=== PATIENT | female | born 1945 | race Caucasian/White ===

== ENCOUNTER 2018-02-24 11:05 | Observation (INO) ==
--- NOTE | 2018-02-24 11:16 | Emergency Department Note ---
Disposition Clinical Impression: Chest pain, DJD (degenerative joint disease), lumbar, HLD (hyperlipidemia), Pityriasis rosea Disposition: Admitted As Inpatient Condition: Fair Referrals: NONE,PCP [Non-Partnered Physician] - Forms: ED Satisfaction Letter Time of Disposition: 12:50 Chest Pain HPI - General Chief Complaint: ED Chest Pain Stated Complaint: chest burning Time Seen by Provider: 02/24/18 11:09 Source: patient Mode of arrival: ambulatory Limitations: no limitations Vital Signs Reviewed: Yes Nursing Notes Reviewed: Yes - History of Present Illness HPI Narrative: 72-year-old female who presents versus hadn't having intermittent chest pain no nausea no vomiting no diaphoresis no radiation of the neck and jaw have strong family history of cardiac disease. Patient states though she also has a rash which is present over started initially on the breast and now spread over the trunk and back and third she has flank pain is along the spine it's worse with twisting turning moving she denies any blood in her stool she denies any abdominal pain or discomfort she denies vaginal discharge denies any difficulty with urinating and stooling she's concern today was because she's had midsternal chest pain worsened with activity was present when she got up but is gone now she denies any. Makes it better nothing makes where she did take an aspirin prior to arrival systems reviewed and are negative Pt complaint: chest pain Onset (ago): Just [employer] Duration: intermittent Onset: during rest, during exertion Pain Location: substernal Severity: moderate Severity scale (1-10): 5 Quality: aching Pain Radiation: none Improves with: nothing Worsens with: exertion Associated symptoms: Reports: other (Back pain). Denies: nausea, vomiting, diaphoresis, dyspnea, sense of impending doom, syncope, palpitations, fever, cough, leg swelling Treatments prior to arrival chest pain: aspirin, other (Home meds) - Related Data Home Medications Medication Instructions Recorded Confirmed Albuterol Sulfate [Albuterol 2 puff IH Q4H PRN 04/12/16 02/24/18 Inhaler] Aspirin [Lo-Dose Aspirin EC] 81 mg PO DAILY 04/12/16 02/24/18 Atorvastatin Calcium [Lipitor] 40 mg PO DAILY 04/12/16 02/24/18 Omeprazole 40 mg PO DAILY 04/12/16 02/24/18 Potassium Chloride [Klor-Con 10 meq PO DAILY 04/12/16 02/24/18 Sprinkle] Sertraline [Zoloft] 150 mg PO DAILY 04/12/16 02/24/18 Ergocalciferol (VITAMIN D2) 50,000 unit PO QWEEK 06/25/16 02/24/18 [Vitamin D2] Allergies Allergy/AdvReac Type Severity Reaction Status Date / Time Iodinated Contrast- Oral and Allergy Hives Verified 06/26/16 15:31 IV Dye [Iodinated Contrast Media - Oral and] DERRICK Inhibitors AdvReac Cough Verified 06/26/16 15:31 All systems ED: reviewed and negative except as stated. Review of Systems: As Per HPI Constitutional: Reports: weakness. Denies: fever, chills Eyes: Denies: eye pain, eye discharge ENT ED: Denies: ear pain, throat pain Cardiovascular: Reports: chest pain, palpitations, dyspnea on exertion Respiratory: Denies: cough, dyspnea, wheezes Gastrointestinal: Denies: abdominal pain, nausea, vomiting Genitourinary: Denies: urgency, dysuria, frequency Musculoskeletal: Denies: back pain, neck pain Integumentary: Reports: rash. Denies: abrasion Neurological: Reports: weakness. Denies: headache, numbness Psychiatric: Denies: anxiety, depression Endocrine: Denies: fatigue Hematological/Lymphatic: Denies: easy bleeding Allergic/Immunologic: Denies: facial swelling Chest Pain PMH - Past Medical History Medical history: Reports: GERD, hyperlipidemia, hypertension Surgical history: Reports: cholecystectomy, hysterectomy Psychiatric history: Reports: anxiety - Social History Smoking Status: Former smoker Alcohol use: Reports: none Drug use: Reports: none Physical Exam - General Limitations: no limitations General appearance: alert, in no apparent distress - Head Head exam: atraumatic, normocephalic, normal inspection - Eye Eye exam: Present: normal appearance, PERRL, EOMI - ENT ENT exam: normal exam, normal oropharynx, mucous membranes moist, TM's normal bilaterally, normal external ear exam - Neck Neck exam: Present: normal inspection, full ROM, trachea midline - Chest Chest inspection: Present: normal inspection, symmetric chest wall rise, other (Lesion on the right breast consistent with Isaak lesion she has multiple spots all over her chest and back follows along the folds in the back it is consistent with little bit salmon colored rash which blanches with palpation) - Respiratory Respiratory exam: Present: normal lung sounds bilaterally - Cardiovascular Cardiovascular exam: Present: regular rate, normal rhythm, normal heart sounds - Abdominal Exam Abdominal exam: Present: soft, Non-Tender, normal bowel sounds. Absent: mass, pulsatile mass - Expanded Upper Extremity Exam Shoulder exam: Present: normal inspection, full ROM Arm exam: Present: normal inspection, full ROM Elbow exam: Present: normal inspection, full ROM Forearm/Wrist exam: Present: normal inspection, full ROM Hand exam: Present: normal inspection, full ROM Vascular exam: Normal: capillary refill, radial pulse - Expanded Lower Extremity Exam Hip/Pelvis exam: Present: normal inspection, full ROM Upper leg exam: Present: normal inspection, full ROM Knee exam: Present: normal inspection, full ROM Lower leg exam: Present: normal inspection, full ROM Ankle exam: Present: normal inspection, full ROM Foot/toe exam: Present: normal inspection, full ROM Neurovascular/Tendon exam: Present: normal capillary refill, normal fine/light touch. Absent: motor deficit, sensory deficit, tendon deficit Gait: observed and normal - Back Exam Back exam: Present: normal inspection, full ROM. Absent: muscle spasm - Neurological Exam Neurological exam: Present: alert, oriented X3, CN II-XII intact, normal gait - Psychiatric Psychiatric exam: Present: normal affect, normal mood - Skin Skin exam: Present: warm, dry, intact, normal color Course Course Narrative: Patient seen and examined patient is currently pain-free at this time she has been monitored in the emergency room monitor for 23 hours and repeat her troponin MedSurg Dr. Sinclair patient's back pain appears to be more musculoskeletal in etiology most likely degenerative changes noted with the weather changing of the rash that is present on her chest she has a here lesion on the right breast that is consistent with that that she's got the rash which is been present for couple weeks as result self-limiting Vital Signs Temperature 98.1 F 02/24/18 11:09 Pulse Rate 68 02/24/18 11:09 Respiratory Rate 18 02/24/18 11:09 Blood Pressure 146/67 02/24/18 11:09 O2 Sat by Pulse Oximetry 98 02/24/18 11:09 Temperature 98.1 F 02/24/18 11:09 Pulse Rate 66 02/24/18 12:41 Respiratory Rate 18 02/24/18 12:41 Blood Pressure 155/82 02/24/18 12:41 O2 Sat by Pulse Oximetry 99 02/24/18 12:41 Oxygen Delivery Oxygen Delivery Room Air Chest Pain - Differential Diagnosis Likely: unstable angina pectoris, atypical chest pain, chest pain - Medical Records Medical records reviewed: Yes I reviewed the patient's medical records. - Lab Data Lab results reviewed: Yes I reviewed the patient's lab results. Result diagrams: 02/24/18 11:51 02/24/18 11:51 Lab Results 02/24/18 02/24/18 02/24/18 Range/Units 11:51 11:51 11:51 WBC 6.6 (4.3-11.1) K/mcL RBC 4.38 (3.82-4.97) M/mcL Hgb 11.5 (11.5-15.4) g/dL Hct 35.9 (35.3-44.9) % MCV 82.0 L (83.0-100.0) fL MCH 26.3 L (28.0-33.3) pg MCHC 32.0 (31.6-35.5) g/dL RDW 13.0 (11.5-14.5) % Plt Count 62 L (140-400) K/mcL MPV 13.4 H (9.4-12.4) fL Immature Gran % 0.3 (0-4) % Seg Neutrophils % 75.4 % Lymphocytes % 13.7 % Monocytes % 9.3 % Eosinophils % 1.1 % Basophils % 0.2 % Neutrophils # 5.0 (1.6-8.9) K/mcL Lymphocytes # 0.9 (0.6-4.6) K/mcL Monocytes # 0.6 (0.0-1.3) K/mcL Eosinophils # 0.1 (0.0-0.6) K/mcL Basophils # 0.0 (0.0-0.2) K/mcL PT 13.6 H (9.4-12.1) Seconds INR 1.2 APTT 33.8 (26.0-36.0) Seconds Sodium 136 (136-145) mEq/L Potassium 3.6 (3.5-5.1) mEq/L Chloride 103 (98-107) mEq/L Carbon Dioxide 24 (23-29) mEq/L BUN 14 (8-23) mg/dL Creatinine 0.66 (0.60-1.20) mg/dL Est GFR ( Amer) > 60 (> 60) Est GFR (Non-Af Amer) > 60 (> 60) BUN/Creatinine Ratio 21 (6-26) Glucose 113 H (70-105) mg/dL Calculated Osmolality 283 (280-300) Lactic Acid (0.5-2.2) mmol/L Calcium 9.1 (8.6-10.3) mg/dL Magnesium 2.1 (1.6-2.6) mg/dL Total Bilirubin 0.6 (0.3-1.0) mg/dL AST 15 (13-39) Units/L ALT 15 (7-52) Units/L Alkaline Phosphatase 112 H (34-104) Units/L Troponin I < 0.03 (< 0.04) ng/mL B-Natriuretic Peptide (Less than 100) pg/mL Serum Total Protein 6.9 (6.4-8.9) g/dL Albumin 3.6 (3.5-5.7) g/dL Globulin 3.3 (2.4-3.5) g/dL Albumin/Globulin Ratio 1.1 (1.1-2.2) TSH 1.371 (0.340-5.600) mcIU/mL 02/24/18 02/24/18 Range/Units 11:51 11:51 WBC (4.3-11.1) K/mcL RBC (3.82-4.97) M/mcL Hgb (11.5-15.4) g/dL Hct (35.3-44.9) % MCV (83.0-100.0) fL MCH (28.0-33.3) pg MCHC (31.6-35.5) g/dL RDW (11.5-14.5) % Plt Count (140-400) K/mcL MPV (9.4-12.4) fL Immature Gran % (0-4) % Seg Neutrophils % % Lymphocytes % % Monocytes % % Eosinophils % % Basophils % % Neutrophils # (1.6-8.9) K/mcL Lymphocytes # (0.6-4.6) K/mcL Monocytes # (0.0-1.3) K/mcL Eosinophils # (0.0-0.6) K/mcL Basophils # (0.0-0.2) K/mcL PT (9.4-12.1) Seconds INR APTT (26.0-36.0) Seconds Sodium (136-145) mEq/L Potassium (3.5-5.1) mEq/L Chloride (98-107) mEq/L Carbon Dioxide (23-29) mEq/L BUN (8-23) mg/dL Creatinine (0.60-1.20) mg/dL Est GFR ( Amer) (> 60) Est GFR (Non-Af Amer) (> 60) BUN/Creatinine Ratio (6-26) Glucose (70-105) mg/dL Calculated Osmolality (280-300) Lactic Acid 0.9 (0.5-2.2) mmol/L Calcium (8.6-10.3) mg/dL Magnesium (1.6-2.6) mg/dL Total Bilirubin (0.3-1.0) mg/dL AST (13-39) Units/L ALT (7-52) Units/L Alkaline Phosphatase (34-104) Units/L Troponin I (< 0.04) ng/mL B-Natriuretic Peptide 71 (Less than 100) pg/mL Serum Total Protein (6.4-8.9) g/dL Albumin (3.5-5.7) g/dL Globulin (2.4-3.5) g/dL Albumin/Globulin Ratio (1.1-2.2) TSH (0.340-5.600) mcIU/mL - Radiology Data Radiology results reviewed: Yes I reviewed the patient's radiology results. ITS Impressions Chest X-Ray 02/24/18 11:24 IMPRESSION: Negative portable study. D/ / Trish Vergara Cha, MD / Trish Vergara Cha, MD Interpreting Provider: Trish Vergara Cha, MD Lumbar Spine X-Ray 02/24/18 11:26 IMPRESSION: Mild multilevel degenerative change. D/ / Jf Sanabria MD / Jf Sanabria MD Interpreting Provider: Jf Sanabria MD - EKG Data EKG attestation: Yes I reviewed and interpreted this EKG. EKG results narrative: EKG shows sinus rhythm flattening of the T waves but no acute ST segment elevation rate 71. 167 QRS 76 QT 387 axis 95 Heart Score - Score History: Slightly Suspicious EKG: Non Specific repolarisation Disturbance Age: Greater than 65 Risk Factors: Equal/Greater than 3 risk factor or history of atherosclerotic disease Troponin: Less than normal limit HEART Score Total: 5 Critical Care Time Critical Care Time: No
[2018-02-24 12:01] LABS: Basophils % 0.2 %; Eosinophils # 0.1 K/mcL (0.0-0.6); Eosinophils % 1.1 %; Hematocrit 35.9 % (35.3-44.9); Hemoglobin 11.5 g/dL (11.5-15.4); Immature Granulocytes % 0.3 % (0-4); Lymphocytes # 0.9 K/mcL (0.6-4.6); Lymphocytes % 13.7 %; Mean Corpuscular Hemoglobin 26.3 pg (28.0-33.3); Mean Platelet Volume 13.4 fL (9.4-12.4); Monocytes # 0.6 K/mcL (0.0-1.3); Monocytes % 9.3 %; Red Blood Count 4.38 M/mcL (3.82-4.97); Segmented Neutrophils % 75.4 %
[2018-02-24 12:02] LABS: Platelet Count 62 K/mcL (140-400)
[2018-02-24 12:07] LABS: INR 1.2; Prothrombin Time 13.6 Seconds (9.4-12.1)
[2018-02-24 12:09] LABS: Activated Partial Thrombo Time 33.8 Seconds (26.0-36.0)
[2018-02-24 12:18] LABS: Alanine Aminotransferase 15 Units/L (7-52); Albumin 3.6 g/dL (3.5-5.7); Albumin/Globulin Ratio 1.1 (1.1-2.2); Alkaline Phosphatase 112 Units/L (34-104); Aspartate Amino Transferase 15 Units/L (13-39); BUN/Creatinine Ratio 21 (6-26); Bilirubin,Total 0.6 mg/dL (0.3-1.0); Blood Urea Nitrogen 14 mg/dL (8-23); Calcium 9.1 mg/dL (8.6-10.3); Carbon Dioxide 24 mEq/L (23-29); Chloride 103 mEq/L (98-107); Globulin 3.3 g/dL (2.4-3.5); Glucose 113 mg/dL (70-105); Magnesium 2.1 mg/dL (1.6-2.6); Osmolality,Calculated 283 (280-300); Potassium 3.6 mEq/L (3.5-5.1); Sodium 136 mEq/L (136-145); Total Protein 6.9 g/dL (6.4-8.9); Troponin I < 0.03 ng/mL (< 0.04); eGFR For Non-African Americans > 60 (> 60)
[2018-02-24 12:32] LABS: Thyroid Stimulating Hormone 1.371 mcIU/mL (0.340-5.600)
[2018-02-24 14:24] LABS: Platelet Clumps Few (Not Present); Platelet Estimate Normal (Normal)
[2018-02-24] MEDS ORDERED: Naloxone 0.4 MG/ML INJ IVP PRN (15:25)
--- NOTE | 2018-02-24 18:28 | Internal Med History&Physical ---
Date of Encounter: 02/24/18 Time of Encounter: 17:55 Assessment and Plan (1) Chest pain Current visit: Yes Status: Acute Doubt myocardial ischemia from history and physical. Serial cardiac enzymes have been ordered. Qualifiers: Chest pain type: precordial pain Qualified Code(s): R07.2 - Precordial pain (2) Microcytosis Current visit: Yes Status: Acute Iron profile will be ordered in a.m. (3) Thrombocytopenia Current visit: Yes Status: Acute Decreased from 116 K on 06/25/2016. Recheck in a.m. (4) Hypertension Current visit: No Status: Chronic Continue Cozaar. Qualifiers: Hypertension type: essential hypertension Qualified Code(s): I10 - Essential (primary) hypertension Internal Medicine - H&P: HPI Chief complaint: Chest pain Admitted From: Emergency Dept Plans for Post Hospital Care: Home History of present illness: Ms. Guthrie is a 72 year old female who came to emergency room stating she had chest pain onset 1 week ago. She describes it as an ache in her mid chest area without radiation. Episodes were unrelated to exercise and lasted approximately 10 minutes and resolved spontaneously. The discomfort occurred approximately 4 times daily. The intensity of the pain worsened last evening and she developed occasional vertigo periodically. Her daughter insisted she come to emergency room. She was evaluated and admitted to [facility] floor for ongoing care needs. She states she is pain-free at present time. She denies previous similar episodes of pain. She denies angina or anginal equivalents on exertion. She has hypertension but denies NE heart failure DVT or pulmonary embolus. She denies stress test or heart cath. Past Med Surg Social Fam HX - Past Medical History Medical history: GERD, hyperlipidemia, hypertension Additional medical history: PVD Psychiatric history: anxiety - Past Surgical History Surgical History: cholecystectomy, hysterectomy - Social History Smoking Status: Former smoker Smokeless Tobacco Status: No Alcohol use: none Drug use: none - Family History Mother Living Status: Hx Family Cardiac Disorders: Yes (NE) Father Living Status: Hx Family Cardiac Disorders: Yes (NE) Internal Medicine - H&P: Meds Albuterol Sulfate [Albuterol Inhaler] 2 puff IH Q4H PRN 04/12/16 [History] Aspirin [Lo-Dose Aspirin EC] 81 mg PO DAILY 04/12/16 [History] Atorvastatin Calcium [Lipitor] 80 mg PO DAILY 04/12/16 [History] Omeprazole 40 mg PO DAILY 04/12/16 [History] Potassium Chloride [Klor-Con Sprinkle] 10 meq PO DAILY 04/12/16 [History] Sertraline [Zoloft] 150 mg PO DAILY 04/12/16 [History] Ergocalciferol (VITAMIN D2) [Vitamin D2] 50,000 unit PO QWEEK 06/25/16 [History] Losartan [Cozaar] 50 mg PO QAM 02/24/18 [History] Allergy/AdvReac Type Severity Reaction Status Date / Time Iodinated Contrast- Oral and Allergy Hives Verified 06/26/16 15:31 IV Dye [Iodinated Contrast Media - Oral and] DERRICK Inhibitors AdvReac Cough Verified 06/26/16 15:31 All Systems PM: A 10-system review of systems was performed and is negative for pertinent findings except as documented above in the HPI. Review of systems: Gen.: She states her weight has been stable the past few months Cardiovascular: As per history of present illness Respiratory: She smoked from approximately age [age] up to 2 cigarettes per day. She denies chronic lung disease and does not use home oxygen. GI: She has had cholecystectomy. She denies disorders of her liver or exocrine pancreas : She denies hematuria dysuria or kidney stones Neurologic: She denies large distribution strokes or seizures. Endocrine: She has hyperlipidemia but denies diabetes or thyroid disease Hematology/oncology: She denies blood disorders cancers or anemia Psychiatric: She denies anxiety depression or other mental health issues. [place] skeletal: She has arthritis and chronic back pain. She denies gout or other bone joint or muscle disorders. - Constitutional Vitals: Temp Pulse Resp BP Pulse Ox 98.1 F 80 18 137/76 100 02/24/18 11:09 02/24/18 13:34 02/24/18 13:34 02/24/18 13:34 02/24/18 13:34 Exam: Gen.: She is a well-developed well-nourished female resting comfortably in bed who appears in no acute distress HEENT: Head is atraumatic and normocephalic. Eyes: EOMI. There is no scleral icterus. Mouth: Mucosa is moist. Neck: Supple and nontender. There is no thyromegaly or adenopathy noted. Heart: Regular without murmurs gallops or ectopics Chest: She is slightly tender in costosternal joints to compression stating "that is the pain" on compression. Lungs: No wheezes or crackles are heard. Soft and nontender. No masses or guarding are noted. Extremities: There is no cyanosis edema or clubbing noted. Dorsalis pedis and posttibial pulses are 1-2 over 2 bilaterally. Neurologic: Mental status: She is talkative and a good historian. Cranial nerves: Smile is symmetric. Forehead wrinkles bilaterally. Tongue protrudes midline. EOMI. Motor: There is no pronator drift. Cerebellar: Finger to nose is intact bilaterally. Skin: Warm and dry Internal Med - H&P Results - Labs CBC & Chem 7: 02/24/18 11:51 02/24/18 11:51 Labs: Short CBC 02/24/18 Range/Units 11:51 WBC 6.6 (4.3-11.1) K/mcL Hgb 11.5 (11.5-15.4) g/dL Hct 35.9 (35.3-44.9) % Plt Count 62 L (140-400) K/mcL Neutrophils # 5.0 (1.6-8.9) K/mcL BMP 02/24/18 11:51 Sodium 136 Potassium 3.6 Chloride 103 Carbon Dioxide 24 BUN 14 Creatinine 0.66 Glucose 113 H Calcium 9.1 Cardiac Enzymes 02/24/18 02/24/18 Range/Units 11:51 17:52 Troponin I < 0.03 < 0.03 (< 0.04) ng/mL Liver Function 02/24/18 Range/Units 11:51 Total Bilirubin 0.6 (0.3-1.0) mg/dL AST 15 (13-39) Units/L ALT 15 (7-52) Units/L Alkaline Phosphatase 112 H (34-104) Units/L Albumin 3.6 (3.5-5.7) g/dL - Impressions ITS Impressions Chest X-Ray 02/24/18 11:24 IMPRESSION: Negative portable study. D/ / Trish Vergara Cha, MD / Trish Vergara Cha, MD Interpreting Provider: Trish Vergara Cha, MD Lumbar Spine X-Ray 02/24/18 11:26 IMPRESSION: Mild multilevel degenerative change. D/ / Jf Sanabria MD / Jf Sanabria MD Interpreting Provider: Jf Sanabria MD
[2018-02-24] MEDS: Ibuprofen 400 MG TABLET PO PRN (20:10)
[2018-02-25] MEDS: Ibuprofen 400 MG TABLET PO PRN (04:09)
[2018-02-25 06:42] LABS: Basophils % 0.2 %; Eosinophils % 0.7 %; Hematocrit 39.2 % (35.3-44.9); Hemoglobin 12.5 g/dL (11.5-15.4); Immature Granulocytes % 0.7 % (0-4); Lymphocytes # 0.7 K/mcL (0.6-4.6); Lymphocytes % 12.2 %; Mean Corpuscular HGB Conc 31.9 g/dL (31.6-35.5); Mean Corpuscular Hemoglobin 26.1 pg (28.0-33.3); Mean Corpuscular Volume 81.8 fL (83.0-100.0); Mean Platelet Volume 10.1 fL (9.4-12.4); Monocytes # 0.5 K/mcL (0.0-1.3); Monocytes % 8.9 %; Neutrophils # 4.5 K/mcL (1.6-8.9); Platelet Count 229 K/mcL (140-400); Red Blood Count 4.79 M/mcL (3.82-4.97); Red Cell Distribution Width 13.1 % (11.5-14.5); Segmented Neutrophils % 77.3 %
[2018-02-25 07:11] LABS: BUN/Creatinine Ratio 14 (6-26); Blood Urea Nitrogen 10 mg/dL (8-23); Calcium 8.9 mg/dL (8.6-10.3); Carbon Dioxide 23 mEq/L (23-29); Chloride 103 mEq/L (98-107); Glucose 145 mg/dL (70-105); Osmolality,Calculated 282 (280-300); Potassium 3.7 mEq/L (3.5-5.1); Sodium 135 mEq/L (136-145); eGFR For Non-African Americans > 60 (> 60)
[2018-02-25 07:31] VITALS: BP 192/76
[2018-02-25] MEDS ORDERED: Aspirin Enteric Coated 81 MG Tablet PO SCH (09:00)
[2018-02-25 09:18] LABS: % Iron Saturation 7 % (15-50); Iron 23 mcg/dL (50-170); Transferrin 224 mg/dL (203-362)
[2018-02-25 09:37] LABS: Ferritin 208 ng/mL (10-120)
--- NOTE | 2018-02-25 09:55 | Discharge Summary ---
Orders not resulted at time of discharge: Pending orders 02/24/18 11:25 Urinalysis Reflex Cult & Micro [URIN] Stat 02/24/18 11:51 Culture,Blood [BC] Stat Date of Encounter: 02/25/18 Time of Encounter: 09:45 - Discharge Diagnosis (1) Chest pain Priority: Primary Status: Acute Qualifiers: Chest pain type: precordial pain Qualified Code(s): R07.2 - Precordial pain (2) Microcytosis Priority: Secondary Status: Acute (3) Thrombocytopenia Priority: Secondary Status: Resolved (4) Hypertension Priority: Secondary Status: Chronic Qualifiers: Hypertension type: essential hypertension Qualified Code(s): I10 - Essential (primary) hypertension Hospital course: Ms. Guthrie is a 72 year old female who came to emergency room stating she had chest pain onset 1 week ago. She describes it as an ache in her mid chest area without radiation. Episodes were unrelated to exercise and lasted approximately 10 minutes and resolved spontaneously. The discomfort occurred approximately 4 times daily. The intensity of the pain worsened last evening and she developed occasional vertigo periodically. Her daughter insisted she come to emergency room. She was evaluated and admitted to [facility] for ongoing care needs. Initial orders were written by the emergency room physician. I saw her on February 24 and performed a history and physical. Repeat cardiac enzymes showed no evidence of myocardial damage. When I saw her I did not think the pain was likely to be myocardial ischemic origin. I felt it was possibly from chest wall origin. She was given ibuprofen and had resolution of the pain. Iron profile showed iron 23, transferrin saturation 7%, transferrin 224, and ferritin 208. She will be started on ferrous sulfate with ascorbic acid. Omeprazole will be decreased to 20 mg qd prn to facilitate absorption. Platelet level normalized to 229 K on February 25. When I saw her on February 25 she felt stable for discharge home. She will follow with her PCP Dr. Schwartz within 1 week. - Time Spent with Patient Total time spent providing and/or coordinating discharge services: - Discharge Medications Prescriptions: Ascorbic Acid [Vitamin C] 500 mg PO DAILY #30 tablet Ferrous Sulfate 325 mg PO DAILY #30 tablet Home Medications: Albuterol Sulfate [Albuterol Inhaler] 2 puff IH Q4H PRN 04/12/16 [History] Aspirin [Lo-Dose Aspirin EC] 81 mg PO DAILY 04/12/16 [History] Atorvastatin Calcium [Lipitor] 80 mg PO DAILY 04/12/16 [History] Potassium Chloride [Klor-Con Sprinkle] 10 meq PO DAILY 04/12/16 [History] Sertraline [Zoloft] 150 mg PO DAILY 04/12/16 [History] Ergocalciferol (VITAMIN D2) [Vitamin D2] 50,000 unit PO QWEEK 06/25/16 [History] Losartan [Cozaar] 50 mg PO QAM 02/24/18 [History] Ascorbic Acid [Vitamin C] 500 mg PO DAILY #30 tablet 02/25/18 [Rx] Ferrous Sulfate 325 mg PO DAILY #30 tablet 02/25/18 [Rx] Omeprazole 20 mg PO DAILY PRN 365 Days 02/25/18 [Rx] Allergies/Adverse Reactions: Allergy/AdvReac Type Severity Reaction Status Date / Time Iodinated Contrast- Oral and Allergy Hives Verified 06/26/16 15:31 IV Dye [Iodinated Contrast Media - Oral and] DERRICK Inhibitors AdvReac Cough Verified 06/26/16 15:31 Date of admission: 02/24/18 13:15 Primary care physician: Mani Schwartz DO - Constitutional Vitals: Temp Pulse Resp BP Pulse Ox 97.9 F 66 17 192/76 98 02/25/18 07:30 02/25/18 07:30 02/25/18 07:30 02/25/18 07:30 02/25/18 07:30 - Patient Status Disposition: Home, Self-Care Condition: Fair - Discharge Instructions Follow Up With: Mani Schwartz DO [Primary Care Provider] - 1 week - Diet and Activity Activity: resume usual activities as tolerated
--- NOTE | 2018-02-25 17:43 | Electrocardiograph Report ---
[address] [place], [place] [address] Test Date: 2018-02-24 Pat Name: Chel Guthrie Department: [id number] Room: [facility] Gender: F Risk Control Director: [id number] : 1945 Requested By: Ivania Jesus Order Number: [id number] Reading MD: Bren Hutchinson Measurements Intervals [place] Rate: 71 P: -25 [place]: 167 QRS: 95 QRSD: 76 T: 0 QT: 387 QTc: 410 Interpretive Statements SINUS RHYTHM BORDERLINE RIGHT AXIS DEVIATION INFERIOR MYOCARDIAL INFARCTION, PROBABLY OLD LOW VOLTAGE LIMB LEADS Electronically Signed On 02-25-2018 17:42:15 EST by Bren Hutchinson
== END 2018-02-25 11:25 | disposition home or self-care (01) ==
LOC: EMEROOPIK 11:05 → INPPIK 11:05
PROVIDERS: ADMIT Internal Medicine; ATTEND Internal Medicine